=== PATIENT | male | born 1965 | race Caucasian/White ===

== ENCOUNTER 2018-12-22 14:41 | Emergency (ER) | payer BC ==
[~2018-12-22] VITALS: Ht 172.7 cm; Wt 74.8 kg
[2018-12-22] MEDS ORDERED: VANCOMYCIN (15:08)
[2018-12-22 15:41] LABS: BASOPHILS # (AUTO) 0.1 K/uL (0.0-8.0); BASOPHILS % (AUTO) 0.7 % (0.0-2.0); EOSINOPHILS # (AUTO) 0.3 K/uL (0.0-0.7); EOSINOPHILS % (AUTO) 3.4 % (0.0-7.0); HEMATOCRIT 29.3 % (36.7-47.1); HEMOGLOBIN 9.5 g/dL (12.5-16.3); LYMPHOCYTES # (AUTO) 1.7 K/uL (20.0-40.0); LYMPHOCYTES % (AUTO) 21.8 % (20.5-51.5); MEAN CORPUSCULAR HEMOGLOBIN 28.3 uug (23.8-33.4); MEAN CORPUSCULAR HGB CONC 33 g/dL (32.5-36.3); MEAN CORPUSCULAR VOLUME 86.9 fL (73.0-96.2); MONOCYTES # (AUTO) 0.5 K/uL (2.0-10.0); MONOCYTES % (AUTO) 6.7 % (0.0-11.0); NEUTROPHILS # (AUTO) 5.3 K/uL (1.8-8.9); NEUTROPHILS % (AUTO) 67.4 % (38.5-71.5); PLATELET COUNT (AUTO) 242 K/uL (152-348); RED BLOOD CELL COUNT(AUTO) 3.37 MIL/uL (4.06-5.63); WHITE BLOOD COUNT (AUTO) 7.9 K/uL (3.6-10.2)
[2018-12-22 15:52] LABS: POTASSIUM 5.9 mmol/L (3.5-5.1)
[2018-12-22 15:59] LABS: CREATININE 8.4 mg/dL (0.6-1.3)
[2018-12-22 16:04] LABS: BILIRUBIN,DIRECT 0.1 mg/dL (0.0-0.2); BILIRUBIN,TOTAL 0.4 mg/dL (0.2-1.0)
--- NOTE | 2018-12-22 16:25 | NUR ---
Patient is resting comfortably in bed with eyes closed. PATIENT IS PAIN FREE AT THIS TIME, for disposition@this time.
--- NOTE | 2018-12-22 17:11 | NUR ---
Patient is eating hot renal dinner tray with good appetite. Patient is for discharge back to detention. [facility] ambulance [id number]. Patient notified.
--- NOTE | 2018-12-22 17:55 | NUR ---
Patient discharged to home in stable conditon. Written and verbal after care instructions given to patient, patient's primary [email or web address] staff EMT Dianne. Patient, EMT Dianne & jail nurse Sherif verbalized understanding & compliance of instructions.
== END 2018-12-22 17:57 | disposition home or self-care (01) ==
LOC: ER 14:41
DX: R79.9 Abnormal finding of blood chemistry, unspecified (principal); I12.0 Hypertensive chronic kidney disease with stage 5 chronic kidney disease or end stage renal disease; N18.6 End stage renal disease; Z99.2 Dependence on renal dialysis; J44.9 Chronic obstructive pulmonary disease, unspecified; K21.9 Gastro-esophageal reflux disease without esophagitis; E03.9 Hypothyroidism, unspecified; I25.10 Atherosclerotic heart disease of native coronary artery without angina pectoris; E78.5 Hyperlipidemia, unspecified; E11.9 Type 2 diabetes mellitus without complications
CPT/HCPCS: 36415; 70030-TC; 71045; 83605; 85025; 85730; 87040; A4663